=== PATIENT | male | born 1965 | race Caucasian/White ===

== ENCOUNTER → 2017-02-17 | Outpatient (CLI) | payer OTHER | LOC: FIMAGING 12:36 | PROVIDERS: ATTEND Internal Medicine | DX: N50.3 Cyst of epididymis (principal) ==

== ENCOUNTER → 2017-07-19 | Outpatient (CLI) | payer OTHER | LOC: BMCIMAGING 12:14 | PROVIDERS: ATTEND Family Medicine | DX: J98.4 Other disorders of lung (principal); R05 Cough ==

== ENCOUNTER → 2019-02-03 | Outpatient (CLI) | payer OTHER | LOC: BMCIMAGING 09:27 | PROVIDERS: ATTEND Emergency Medicine | DX: J40 Bronchitis, not specified as acute or chronic (principal) ==